=== PATIENT | male | born 1980 | race Caucasian/White ===

== ENCOUNTER → 2018-02-26 09:05 | Outpatient (CLI) | payer OTHER, SELFPAY ==
[2018-02-26 10:16] LABS: Basophils % 0.3 % (0.1-2.0); Eosinophils # 0.5 K/mm3 (0.0-0.4); Eosinophils % 4.5 % (0.1-12.0); Hematocrit 47.3 % (42.0-52.0); Hemoglobin 15.8 g/dL (14.1-18.0); Lymphocytes # 2.3 K/mm3 (0.7-4.5); Lymphocytes % 19.7 K/mm3 (10-50); Mean Corpuscular HGB Conc 33.3 g/dL (31.8-35.4); Mean Corpuscular Hemoglobin 30.4 pg (27.0-31.2); Mean Corpuscular Volume 91.4 fl (80-94); Mean Platelet Volume 7.4 fl (7.4-10.4); Monocytes # 0.6 K/mm3 (0.1-1.0); Neutrophils # 8.2 K/mm3 (1.8-7.8); Neutrophils % 70.6 % (37.0-80.0); Platelet Count 236 K/mm3 (142-424); Red Blood Count 5.18 M/mm3 (4.60-6.20); Red Cell Distribution Width 12.8 % (11.5-17.5); White Blood Count 11.7 K/mm3 (4.8-10.8)
== END ==
PROVIDERS: PCP Emergency Medicine; Visit Provider Emergency Medicine
DX: K62.5 Hemorrhage of anus and rectum (principal)
CPT/HCPCS: 36415; 85025

== ENCOUNTER → 2020-04-21 07:31 | Outpatient (CLI) | payer MEDICAID, SELFPAY ==
--- NOTE | 2020-04-21 | CA_ITS ---
APPROVED REPORT Exam: Exercise Treadmill Technologist: Yana Baca, Ht: 5 ft 8 in Wt: 187 lbs BSA: 1.99 m2 HR: 65 bpm BP: 118/75 mmHg Rhythm: NSR, T WAVE ABN INFERIORLY Indications: Chest pain Medical History Medications: Vitamin D,,,,, Asprin,,,,, Allergies: PCN Cardiac Risk Factors: FHX of CAD Stress Test Details Test: Fred HR Resting HR: 80 bpm Max Heart Rate (APMHR): 180 bpm Max HR Achieved: 166 bpm Target HR (85% APMHR): 153 bpm % of APMHR: 92 Recovery HR: 102 bpm BP Resting BP: 127.0/80.0 mmHg Max BP: 172.0/70.0 mmHg Recovery BP: 138.0/64.0 mmHg ECG Resting ECG: NSR,T WAVE ABN INFERIORLY Clinical Exercise duration: 09:17 min Highest Stage Achieved: Exercise capacity: 10.1 METs Stress ECG Conclusion EXERCISED 9:00 ON FRED PROTOCOL WITH MAX HEART RATE 158 BPM WHICH IS 88% OF PM FOR AGE. MAX BP 172/70. METS = 10.1. TEST STOPPED DUE TO SOA AND DIZZINESS. PATIENT HAD CHEST TIGHTNESS AND DYSPNEA. FREQUENT PVC'S AND V. COUPLETS WITH ONE V. TRIPLET IN STAGE III. MILD EXAGGERATION OF BASELINE T WAVE ABNS INFERIORLY. OTHERWISE NORMAL ST RESPONSE TO EXERCISE. FREQUENT V. ECTOPY IN FINAL STAGE OF EXERCISE. OTHERWISE NORMAL GXT. STRESS ECHO IMAGES REPORTED SEPARATELY Test Summary RECOVERY 05:00 0.0 0.0 86 . 111/ 61 . . REST 07:18 0.0 0.0 80 . 127/ 80 . . Stage 1 01:00 10.0 1.7 103 . . . . Stage 1 02:00 10.0 1.7 115 . . . . Stage 1 03:00 10.0 1.7 114 . 154/ 74 . . Stage 2 01:00 12.0 2.5 119 . . . . Stage 2 02:00 12.0 2.5 120 . . . . Stage 2 03:00 12.0 2.5 124 . 158/ 75 . . Stage 3 01:00 14.0 3.4 141 . . . . Stage 3 02:00 14.0 3.4 148 . . . . Stage 3 . . . . . . . Stage held Stage 3 03:00 14.0 3.4 149 . 172/ 70 . . Stage 3 . . . . . . . Stage resumed Stage 3 03:17 14.0 0.0 149 . 172/ 70 . Stop exercise at 09:17 RECOVERY 01:00 0.0 0.0 102 . . . . RECOVERY 02:00 0.0 0.0 92 . 138/ 64 . . RECOVERY 03:00 0.0 0.0 86 . 138/ 64 . . RECOVERY 04:00 0.0 0.0 93 . 122/ 63 . . RECOVERY 05:00 0.0 0.0 86 . 111/ 61 . . RECOVERY 05:32 0.0 0.0 90 . 111/ 61 . . Electronically signed by : Otf Villarreal, 04/21/2020 14:10:16
--- NOTE | 2020-04-21 07:36 | CA_ITS ---
APPROVED REPORT EXAM: Comprehensive 2D, Doppler, and color-flow Echocardiogram Manager Fraud: Maria Guadalupe Morel RVT Ht: 5 ft 8 in Wt: 187lbs BSA: 1.99 BP: 136/80 mmHg Indications: SOA,ABN EKG,SMOKER,CP,HLD 2D Dimensions LVOT 2.27 cm (M/F) 1.5-2.5 M-Mode Dimensions RVDd 2.58 cm (0.9-2.6) LA Diam 2.89 cm (1.9-4.0) LVDd 4.29 cm (3.5-5.7) Ao Diam 3.19 cm (2.0-3.7) LVDs 2.31 cm (3.5-5.7) IVSd 0.50 cm (0.6-1.1) PWd 1.24 cm (0.6-1.1) EF (Teich) 77.80% FS 46.20% EDV (Teich) 82.60 mL ESV (Teich) 18.30 mL LV Diastology E Decel Time 160.00 (160-240 msec) E/A Ratio 1.0 MED E' 6.80 (< 7 cm/sec) E'/MED E' Ratio 7.87 (>14) LAT E' 7.60 (<10 cm/sec) E/LAT E' Ratio 7.04 (>14) Mitral Valve MV E Max Max. 54.00 (40-130 cm/s) MV A Velocity 55.00 (40-130 cm/s) E/A Ratio 0.98 MV Decel. Time 160.00 (160-240 ms) MV PHT 47.00 ms Pulmonary Valve PV Peak Velocity 92.00 (50-150 cm/s) Left Ventricle Left atrium is mildly enlarged, left ventricle is normal size, mild concentric left ventricular hypertrophy, visually estimated ejection fraction 55% with no regional wall motion abnormality, grade 1 diastolic dysfunction seen without tissue Doppler evidence of raise left atrial pressure. Right Ventricle Right atrium and right ventricle are mildly enlarged with normal contractility. Aortic Valve Aortic valve is minimally thickened and fibrosed, there is no aortic stenosis or aortic insufficiency. Mitral Valve Mitral valve is grossly normal, there is mild mitral regurgitation. Tricuspid Valve Tricuspid valve is grossly normal, there is mild tricuspid regurgitation, tricuspid regurgitation jet velocity is inadequate for calculation of the right ventricular systolic pressure. Pulmonic Valve Pulmonic valve is poorly visualized. Great Vessels Aortic root is normal size. Pericardium No significant pericardial effusion noted. Conclusion 1. Mild biatrial enlargement, normal left ventricular size, visually estimated ejection fraction 55% with no regional wall motion abnormality, grade 1 diastolic dysfunction seen without tissue Doppler evidence of raise left atrial pressure. 2. Mildly enlarged right ventricle with normal contractility. 3. Mild mitral and tricuspid regurgitation. 4. No significant pericardial effusion noted. Electronically signed by : Otf Villarreal, 04/21/2020 15:03:16
--- NOTE | 2020-04-21 07:36 | CA_ITS ---
APPROVED REPORT EXAM: Comprehensive 2D, Doppler, and color-flow Echocardiogram Rehabilitation Aide/Scheduler: Siena Boateng RDCS Ht: 5 ft 8 in Wt: 187lbs BSA: 1.99 BP: 105/59 mmHg Indications: SOA STRESS ECHO Conclusion 1. Patient exercised on Fred protocol and achieved 10.1 mets of workload on treadmill, patient complained of mild chest discomfort on treadmill, with no EKG changes. 2. Normal left ventricular size and function at rest, with exercise there is increase in contractility of all the segments of the myocardium with hyperdynamic left ventricular systolic response, no segmental wall motion abnormality to suggest underlying ischemic heart disease. Electronically signed by : Otf Villarreal, 04/21/2020 15:04:38
== END ==
PROVIDERS: PCP Nurse Practitioner Family; Visit Provider Nurse Practitioner Family
DX: R07.9 Chest pain, unspecified (principal); R06.00 Dyspnea, unspecified; R94.31 Abnormal electrocardiogram [ECG] [EKG]; F17.200 Nicotine dependence, unspecified, uncomplicated
CPT/HCPCS: 93017; 93306; 93350

== ENCOUNTER → 2020-05-09 06:36 | Outpatient (CLI) | payer MEDICAID, SELFPAY ==
--- NOTE | 2020-05-09 06:37 | CA_ITS ---
APPROVED REPORT Exam: Exercise Treadmill Technologist: Misa Sauer Ht: 5 ft 8 in Wt: 184 lbs BSA: 1.97 m2 HR: 57 bpm BP: 116/73 mmHg Indications: Chest pain Medical History Medications: Aspirin,,,,, Stress Test Details Test: Fred HR Resting HR: 66 bpm Max Heart Rate (APMHR): 180 bpm Max HR Achieved: 169 bpm Target HR (85% APMHR): 153 bpm % of APMHR: 93 Recovery HR: 94 bpm BP Resting BP: 116/73 mmHg Max BP: 186/80 mmHg Recovery BP: 137.0/73.0 mmHg ECG Clinical Exercise duration: 10:01 min Highest Stage Achieved: Exercise capacity: 12.8 METs Stress ECG Conclusion Resting ECG: Sinus Bradycardia Fred Protocol completed. Exercised 10:01. METS 12.8 Maximum Blood Pressure: 186/80. Maximum Heart Rate 169 BPM. Patient stopped due to shortness of breath. Symptoms: Shortness of Breath during peak exercise, resolved in recovery. No chest pain. Arrhythmias/Ectopy: No ectopy noted. ST-T Changes: Less than 1.[address] depression Conclusion: Images to follow. Test Summary REST . . . . . . . Sitting REST 01:35 0.0 0.0 66 . 116/ 73 . . Stage 1 01:00 10.0 1.7 103 . . . . Stage 1 02:00 10.0 1.7 96 . . . . Stage 1 03:00 10.0 1.7 98 . 130/ 78 . . Stage 2 01:00 12.0 2.5 117 . . . . Stage 2 02:00 12.0 2.5 126 . . . . Stage 2 03:00 12.0 2.5 129 . 145/ 82 . . Stage 3 01:00 14.0 3.4 139 . . . . Stage 3 02:00 14.0 3.4 142 . . . . Stage 3 . . . . . . . Cardiolite injected Stage 3 03:00 14.0 3.4 144 . 154/ 88 . . Stage 4 01:00 16.0 4.2 164 . . . . Stage 4 01:01 16.0 4.2 164 . . . Stop exercise at 10:01 RECOVERY 01:00 0.0 0.0 140 . 186/ 80 . . RECOVERY 02:00 0.0 0.0 110 . 186/ 80 . . RECOVERY 03:00 0.0 0.0 102 . 150/ 80 . . RECOVERY 04:00 0.0 0.0 94 . 137/ 73 . . RECOVERY 04:12 0.0 0.0 95 . 137/ 73 . . Electronically signed by : Otf Villarreal, 05/10/2020 06:43:13
--- NOTE | 2020-05-09 06:37 | NM_ITS ---
APPROVED REPORT Exam: Nuclear Stress Test Indication: Chest pain, SOB, High cholesterol, Tobacco use Patient Location: Outpatient Stress Tech: Misa Sauer [place] Tech:Violetta Jon, ARRT, RT (R)(N) Ht: 5 ft 8 in Wt: 184 lbs HR: 57 bpm BP: 116/73 mmHg BSA: 1.97 m2 BMI: 27.9 History: Chest pain, SOB, High cholesterol, Tobacco use Procedure: Patient exercised on Fred protocol 10:01 minutes and sec, resting heart rate 57 bpm, resting blood pressure 116/73 mmHg, with exercise maximum heart rate achived was 169 bpm which is 94 % of the maximum predicted heart rate and blood pressure was 186/80 mmHg. Test was stopped due to SOB. Patient denied any complaint of chest pain. Patient has Good exercise capacity, achieved 12.8 METs of workload on treadmill, the blood pressure response to exercise was Adequate. Electrocardiogram Resting electrocardiogram showed sinus rhythm, with exercise there is less than 1.[address] segment depression noted from the baseline EKG. The EKG portion of the exercise Myoview is negative for ischemia. Cardiac Stress and Resting SPECT Images: Cardiac Stress and Resting SPECT images were obtained using technetium 99m Myoview 31.9 mCi stress and 10.31 mCi at rest. Gated SPECT with analysis of segmental wall motion and calculation of the ejection fraction also done. Cardiac stress and resting SPECT images show uniform myocardial activity without segmental perfusion abnormality, computer derived ejection fraction 54% with no regional wall motion abnormality, right ventricle is normal size and contractility. Conclusion: 1. The EKG portion of the exercise Myoview is negative for ischemia, patient has good exercise capacity achieved 12.8 mets of workload on treadmill, the blood pressure response to exercise was adequate, there was no exercise-induced chest discomfort. 2. No scintigraphic evidence of reversible ischemia seen, computer derived ejection fraction is 54% with no regional wall motion abnormality, right ventricle is normal size and contractility. 3. Normal exercise Myoview study. Electronically signed by : Otf Villarreal, 05/10/2020 06:54:38
--- NOTE | 2020-05-09 08:48 | HMH.ITSHM ---
Current Home Medications as stated by this patient Yoel Sauer or circulation representative. []ASA
== END ==
PROVIDERS: PCP Nurse Practitioner Family; Visit Provider Urology
DX: R06.00 Dyspnea, unspecified (principal); R07.9 Chest pain, unspecified; I51.89 Other ill-defined heart diseases; F17.200 Nicotine dependence, unspecified, uncomplicated
CPT/HCPCS: 78452; 93017; A9502

== ENCOUNTER → 2020-05-23 10:28 | Outpatient (CLI) | payer MEDICAID, SELFPAY ==
--- NOTE | 2020-05-23 10:33 | XR_ITS ---
PROCEDURE: XR CHEST 2V CLINICAL HISTORY: SOA, Smoker Cough COMPARISON: CR CXR CHEST(2 VIEWS-NOT PORTABLE) from 05/27/2017 FINDINGS: The cardiomediastinal silhouette and pulmonary vascularity are within normal limits. The lungs are clear without infiltrates, suspicious nodules, or pleural effusions. No acute bony abnormalities. IMPRESSION: No acute findings. Dictated by: Kye Cortez MD 05/23/2020 12:13 Kye Cortez MD in [place] 05/23/2020 12:13
== END ==
PROVIDERS: PCP Nurse Practitioner Family; Visit Provider Internal Medicine
DX: R06.00 Dyspnea, unspecified (principal); R07.9 Chest pain, unspecified; F17.200 Nicotine dependence, unspecified, uncomplicated
CPT/HCPCS: 71046

== ENCOUNTER → 2020-05-31 13:36 | Outpatient (CLI) | payer MEDICAID, SELFPAY ==
--- NOTE | 2020-05-31 13:40 | CT_ITS ---
PROCEDURE: CT CHEST WO CON CLINICAL INDICATION: CP, DODGE, smoker COMPARISON: CT ABDPELW CT abdomen pelvis w con from 02/25/2018 DX XR CHEST 2V from 05/23/2020 TECHNIQUE: Axial images obtained with sagittal and coronal reformats. All CT scans at the facility use one or more dose reduction, viz: automated exposure control, ma/kV adjustment per patient size (including targeted exams where dose is matched to indication, i.e. head), or iterative reconstruction technique. FINDINGS: HEART AND MEDIASTINAL STRUCTURES: Unremarkable. LUNGS AND PLEURAL SPACES: Minimal atelectatic or fibrotic changes are present within the lingula. There is calcified granuloma in the left upper lobe.. Minimal atelectatic or fibrotic changes are present in the right lower lobe. There is some mild bronchial thickening in the lower lobes. There is a 6 mm nodular opacity within the medial aspect of the lingula which may be due to some mild fibrotic change. Follow-up may confirm stability BONY STRUCTURES: Minimal degenerative changes within the thoracic spine UPPER ABDOMEN: Unremarkable. ADDITIONAL FINDINGS: No other significant abnormalities. IMPRESSION: No acute finding. There is some minimal bronchial thickening and mild scattered atelectatic or fibrotic changes. Minimal nodularity in the lingula which could be due to some mild fibrotic change. Consider six-month follow-up to confirm short term stability. Dictated by: Kye Cortez MD 06/01/2020 06:25 Kye Cortez MD in [place] 06/01/2020 06:25
[2020-05-31 14:30] VITALS: PULSE 74; PULSE 78
== END ==
PROVIDERS: PCP Nurse Practitioner Family; Visit Provider Physician Assistant
DX: R07.9 Chest pain, unspecified (principal); R06.00 Dyspnea, unspecified; F17.200 Nicotine dependence, unspecified, uncomplicated
CPT/HCPCS: 71250; 94060; 94640

== ENCOUNTER 2020-10-10 10:50 | Emergency (ER) | payer OTHER, SELFPAY ==
[2020-10-10 11:13] VITALS: RESP 16; TEMP 37.2; O2SAT 98; BMI 28.8
--- NOTE | 2020-10-10 11:17 | HMH.EDUTC ---
[facility] [place] Disposition Clinical Impression: At increased risk of exposure to COVID-19 virus Disposition: Home, Self-Care Condition on Discharge: Good Instructions: DI for Allergic Rhinitis, Cetirizine, Preventing the Spread of Coronavirus Discharge Instructions Additional Instructions: Drink plenty of fluids. Take tylenol for pain or fever. Return if you begin to have difficulty breathing. Follow up with your regular doctor. GO TO THE ER FOR ANY WORSENING SYMPTOMS Prescriptions: Cetirizine HCl [Zyrtec] 10 mg PO DAILY 30 Days #30 cap Transmission Status: Received by [facility] Referrals: PCP,No [Primary Care Provider] - Time of Disposition: 11:22 Medical Decision Making - Medical Records Medical records reviewed: No: I reviewed the patient's medical records. - Cristi Inquiry Pt receiving controlled substance: No Vital Signs: 10/10/20 11:13 10/10/20 11:42 Temperature 98.9 F 98.0 F Temperature Source Oral Oral Pulse Rate 78 Respiratory Rate 16 16 Blood Pressure 125/88 02 Sat by Pulse Oximetry 98 Oxygen Delivery Method Room Air Room Air Orders (Tests/Meds): ORDERS Category Date Time Status Covid-19 Nasal PCR ([facility]) Routine Lab 10/10/20 11:00 Received [facility] [place] HPI - General Stated complaint: wants covid test Time Seen by Provider: 10/10/20 11:15 - History of Present Illness Provider Complaint: He has recently traveled out of [place]. He needs a negative covid-19 test to be allowed to return to work. - Related Data Previous Rx's Medication Instructions Recorded omeprazole 40 mg capsule,delayed 40 mg PO DAILY #30 cap 05/23/20 release Cetirizine HCl [Zyrtec] 10 mg PO DAILY 30 Days #30 cap 10/10/20 Allergies Allergy/AdvReac Type Severity Reaction Status Date / Time Penicillins [PENICILLINS] Allergy Mild Verified 06/20/20 10:00 [facility] History - Hepatitis A Screen Attestation statement:: This patient has been screened for Hepatitis A risk factors. I have reviewed the patient's past medical history: Yes Medical History: Reports:: Cancer, Hyperlipidemia Denies:: Diabetes Mellitus Type 1, Diabetes Mellitus Type 2, Hypertension, Lung Disease, Seizures Other Surgeries: Yes: Colonoscopy, Other Amputation: (LLE) Fractures: No - Social History Smoking Status: Current every day smoker Tobacco Type: cigarettes # Packs/Day (cigarettes): 1 Alcohol Intake: never Alcohol Intake Frequency:: holidays/special occasions only Substance Use Type: denies use, marijuana Occupational Status: employed Family Hx:: Coronary Artery Disease ROS Obtained: Yes All systems reviewed & no additional complaints - Constitutional Constitutional: Reports system reviewed and no additional complaints, except as docu - Eyes Eyes: Reports system reviewed and no additional complaints, except as docu - ENT Ears, Nose, Mouth, and Throat: Reports system reviewed and no additional complaints, except as docu - Cardiovascular Cardiovascular: Reports system reviewed and no additional complaints, except as docu - Respiratory Respiratory: Reports system reviewed and no additional complaints, except as docu - Gastrointestinal Gastrointestingal: Reports: system reviewed and no additional complaints, except as docu Physical Exam - General General appearance: alert, in no apparent distress - Head Head exam: atraumatic, normocephalic, normal inspection - Eye Eye exam: Present: normal appearance, PERRL, EOMI - ENT ENT exam: Present: normal exam, normal oropharynx, mucous membranes moist, TM's normal bilaterally, normal external ear exam - Neck Neck exam: Present: normal inspection, full ROM, trachea midline. Absent: meningismus, lymphadenopathy - Chest Chest inspection: Present: normal inspection, symmetric chest wall rise. Absent: tenderness - Respiratory Respiratory exam: Present: normal lung sounds bilaterally. Absent: respiratory distress - Cardiovascular Cardiovas
[2020-10-10 11:42] VITALS: BP 125/88; PULSE 78; RESP 16; TEMP 36.7; O2SAT 98
== END 2020-10-10 11:43 | disposition home or self-care (01) ==
PROVIDERS: Emergency Provider Nurse Practitioner Family
DX: Z20.822 Contact with and (suspected) exposure to COVID-19 (principal)
CPT/HCPCS: 99202; G0463; U0003

== ENCOUNTER 2021-02-06 09:41 | Emergency (ER) | payer OTHER, SELFPAY ==
[2021-02-06 10:00] VITALS: BP 130/86; PULSE 78; RESP 21; TEMP 36.9; O2SAT 98; BMI 27.1
--- NOTE | 2021-02-06 10:20 | HMH.EDUTC ---
[facility] [place] Disposition Clinical Impression: Viral syndrome Disposition: Home, Self-Care Condition on Discharge: Good Instructions: DI for COVID-19 (Suspected or Confirmed ), Coronavirus Disease 2019, Preventing the Spread of Coronavirus Discharge Instructions Additional Instructions: *Monitor Temp, Over the counter Motrin or Tylenol as directed/as needed Tylenol every 4 hours and Motrin every 6 hours (as long as your family doctor has told you that you can take it) for fever or pain. and straight to ER if unable to lower temp less than 101.0 after medication given *Warm salt water gargles may help to soothe the throat *Throat Lozenges *Warm fluids like tea with honey may help to soothe the throat *Sleep elevated *Humidifier/Vaporizer Follow up IMMEDIATELY for new or worsening symptoms or no Noticeable improvement over the next 48-72 hours. 911 for difficulty breathing or swallowing You were tested for today for COVID19 your test result should be back in the next 24-48 hours, you may call to the [facility] to see if your test results are back in the next 48 hours [phone] [facility] hours are 9am-9pm You was given a handout with instructions for Self Quarantine and Self isolation for while you wait on test results and what to do if they are positive If you are positive the Health Dept will be contacting you also Make sure to take your Vitamins Vit. C Vit D and Zinc if you can take them Referrals: Provider,Referral, [Primary Care Provider] - As needed Forms: Work/School Release Time of Disposition: 10:30 Medical Decision Making - Cristi Inquiry Pt receiving controlled substance: No Cristi was queried for this patient: No Vital Signs: 02/06/21 10:00 Temperature 98.5 F Temperature Source Oral Pulse Rate [Right Brachial] 78 Respiratory Rate 21 Blood Pressure [Right Arm] 130/86 Blood Pressure Mean [Right Arm] 100 Blood Pressure Source [Right Arm] Automatic Cuff Blood Pressure Position [Right Arm] Sitting 02 Sat by Pulse Oximetry 98 Oxygen Delivery Method Room Air Orders (Tests/Meds): ORDERS Category Date Time Status Covid-19 Nasal PCR ([facility]) Routine Lab 02/06/21 10:04 Ordered [facility] [place] HPI - General Stated complaint: covid test Time Seen by Provider: 02/06/21 10:20 Mode of Arrival: Ambulatory Source of Information: Patient Limitations: No Limitations Description of Symptoms (Recalled from Triage Doc. by RN): PATIENT C/O FEVER, RUNNY NOSE, AND WEAKNESS SINCE LAST NIGHT. REQUESTING COVID TEST HEENT Symptoms (Recalled from RN notes): Yes Resp Symptoms (Recalled from RN notes): No Skin Symptoms (Recalled from RN notes): No MS Symptoms (Recalled from RN notes): No Functional Status (Recalled from RN notes): WNL - History of Present Illness Provider Complaint: Patient states that he felt feverish last night and having body aches runny nose chills and feeling fatigued States that due to his symptoms he had to get tested for COVID before he could return to work - Related Data Previous Rx's Medication Instructions Recorded omeprazole 40 mg capsule,delayed 40 mg PO DAILY #30 cap 05/23/20 release Cetirizine HCl [Zyrtec] 10 mg PO DAILY 30 Days #30 cap 10/10/20 Allergies Allergy/AdvReac Type Severity Reaction Status Date / Time Penicillins [PENICILLINS] Allergy Mild Verified 06/20/20 10:00 fluoxetine [From Prozac] Allergy Verified 02/06/21 10:18 - Worker's Comp Is this a Worker's Comp case?: No [facility] History - Hepatitis A Screen Drug use history?: No High risk sexual behaviors?: No History of sexually transmitted infection?: No Currently employed?: No Childcare worker?: No Do you have indoor plumbing?: Yes Do you have electricity?: Yes Attestation statement:: This patient has been screened for Hepatitis A risk factors. I have reviewed the patient's past medical history: Yes Medical History: Reports:: Cancer, Hyperlipidemia Denies:: Diabetes Mellitus Type 1, Diabetes Mellitus Type 2, Hyperten
[2021-02-06 10:36] VITALS: BP 130/86; PULSE 78; RESP 21; TEMP 37.1; O2SAT 98
== END 2021-02-06 10:38 | disposition home or self-care (01) ==
PROVIDERS: Emergency Provider Nurse Practitioner
DX: B34.9 Viral infection, unspecified (principal)
CPT/HCPCS: 99202; G0463; U0003

== ENCOUNTER 2021-09-19 09:07 | Emergency (ER) | payer SELFPAY ==
[2021-09-19 10:11] VITALS: BP 111/87; PULSE 82; RESP 16; TEMP 37.4; O2SAT 98; BMI 27.3
[2021-09-19 10:15] LABS: UTC Influenza A Antigen Negative (Negative); UTC Influenza B Antigen Negative (Negative)
--- NOTE | 2021-09-19 10:20 | HMH.EDUTC ---
[facility] [place] Disposition Clinical Impression: Nausea vomiting and diarrhea Disposition: Home, Self-Care Condition on Discharge: Good Instructions: Nausea and Vomiting-Adult, Diarrhea, Ondansetron Additional Instructions: Drink extra fluids with and between meals. If you have difficulty drinking, try very small amounts of water or suck on ice chips. ? Avoid fruit juices, as these do not replace minerals and can actually increase diarrhea. ? Children and adults can use sports drinks to replenish electrolytes. Younger children and infants should use products formulated for children, like oral rehydration solutions. ? Eat food in small amounts and let your stomach recover. ? Get lots of rest. You may feel tired or weak. ? No greasy or fried foods for the next 24-48 hours BRAT diet Bananas Rice Apples and [place] ? Make sure to drink plenty of liquids ? Return if needed ? Straight to ER if any life threatening symptoms ? Zofran as prescribed ? Follow up with family doctor in the next 48-72 hours if no improvement or any worsening of symptoms Prescriptions: Ondansetron [Zofran 4mg ODT] 4 mg PO TIDP PRN #9 tab PRN Reason: Nausea Transmission Status: Pending to [id number] Referrals: Provider,Referral, MD [Primary Care Provider] - As needed Forms: Work/School Release Medical Decision Making - Cristi Inquiry Pt receiving controlled substance: No Cristi was queried for this patient: No Vital Signs: 09/19/21 10:11 Temperature 99.3 F Temperature Source Oral Pulse Rate [Left] 82 Respiratory Rate 16 Blood Pressure [Right Arm] 111/87 Blood Pressure Mean [Right Arm] 95 02 Sat by Pulse Oximetry 98 - Lab Data Lab results reviewed: Yes: I reviewed the patient's lab results. Lab Results 09/19/21 09:59: Influenza Type A Ag Negative, Influenza Type B Ag Negative [facility] [place] HPI - General Stated complaint: vomiting, fatigue, chills, diarrhea, stomach cramp Time Seen by Provider: 09/19/21 10:20 Mode of Arrival: Ambulatory Source of Information: Patient Limitations: No Limitations Description of Symptoms (Recalled from Triage Doc. by RN): pt c/o n/v/d and chills since yesterday. HEENT Symptoms (Recalled from RN notes): No Resp Symptoms (Recalled from RN notes): No Skin Symptoms (Recalled from RN notes): No MS Symptoms (Recalled from RN notes): No Functional Status (Recalled from RN notes): wnl - History of Present Illness Provider Complaint: Patient states that he thinks he may have a stomach bug States that he has been having N/V/D since yesterday States that this morning he was still having N/V and was unable to go to work so he came in to get checked - Related Data Previous Rx's Medication Instructions Recorded omeprazole 40 mg capsule,delayed 40 mg PO DAILY #30 cap 05/23/20 release Cetirizine HCl [Zyrtec] 10 mg PO DAILY 30 Days #30 cap 10/10/20 Ondansetron [Zofran 4mg ODT] 4 mg PO TIDP PRN #9 tab 09/19/21 Allergies Allergy/AdvReac Type Severity Reaction Status Date / Time Penicillins [PENICILLINS] Allergy Mild Verified 06/20/20 10:00 fluoxetine [From Prozac] Allergy Verified 02/06/21 10:18 - Worker's Comp Is this a Worker's Comp case?: No [facility] History - Hepatitis A Screen Drug use history?: No High risk sexual behaviors?: No History of sexually transmitted infection?: No Currently employed?: No Childcare worker?: No Do you have indoor plumbing?: Yes Do you have electricity?: Yes Attestation statement:: This patient has been screened for Hepatitis A risk factors. I have reviewed the patient's past medical history: Yes Medical History: Reports:: Cancer, Hyperlipidemia Denies:: Diabetes Mellitus Type 1, Diabetes Mellitus Type 2, Hypertension, Lung Disease, Seizures Other Surgeries: Yes: Colonoscopy, Other Amputation: (LLE) Fractures: No - Social History Smoking Status: Current every day smoker Tobacco Type: cigarettes # Packs/Day (cigarettes): 1 Alcohol Intake: never
[2021-09-19 10:35] VITALS: BP 111/87; PULSE 82; RESP 16; TEMP 37.4
== END 2021-09-19 10:38 | disposition home or self-care (01) ==
PROVIDERS: Emergency Provider Nurse Practitioner
DX: B34.9 Viral infection, unspecified (principal); R11.2 Nausea with vomiting, unspecified; E78.5 Hyperlipidemia, unspecified; Z88.0 Allergy status to penicillin
CPT/HCPCS: 87804; 99212; G0463

== ENCOUNTER 2021-10-11 15:47 | Emergency (ER) | payer SELFPAY ==
[2021-10-11 16:31] VITALS: BP 128/83; PULSE 77; RESP 19; TEMP 36.8; O2SAT 100; BMI 24.7
--- NOTE | 2021-10-11 17:11 | HMH.EDUTC ---
[facility] [place] Disposition Clinical Impression: Encounter to establish care Disposition: Home, Self-Care Condition on Discharge: Good Additional Instructions: You was given list of accepting physicians you may call to see if they are taking new patients and make an appointment Return if needed Straight to ER if any life threatening symptoms Referrals: Provider,Referral, MD [Primary Care Provider] - As needed Time of Disposition: 17:15 Medical Decision Making - Cristi Inquiry Pt receiving controlled substance: No Cristi was queried for this patient: No Vital Signs: 10/11/21 16:31 Temperature 98.3 F Temperature Source Oral Pulse Rate [Left Brachial] 77 Respiratory Rate 19 Blood Pressure [Left Arm] 128/83 Blood Pressure Mean [Left Arm] 98 Blood Pressure Source [Left Arm] Automatic Cuff Blood Pressure Position [Left Arm] Sitting 02 Sat by Pulse Oximetry 100 Oxygen Delivery Method Room Air Medical Decision Narrative: Explained to patient that he was at the Urgent treatment center and he could not establish care here however if he had something urgent going on we could see him for that and he declined States that he didnt and just wanted to establish care somewhere Patient given list of accepting physicians and recommended that he call them for appointment [facility] [place] HPI - General Stated complaint: weakness,stomach issues Time Seen by Provider: 10/11/21 17:11 Mode of Arrival: Ambulatory Source of Information: Patient Limitations: No Limitations Description of Symptoms (Recalled from Triage Doc. 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 States that he has episodes of fatigue on and off States that he feels fine right now but wanted to come in and see if he could establish care and get his hormones checked because he has ED - Related Data Previous Rx's Medication Instructions Recorded omeprazole 40 mg capsule,delayed 40 mg PO DAILY #30 cap 05/23/20 release Cetirizine HCl [Zyrtec] 10 mg PO DAILY 30 Days #30 cap 10/10/20 Ondansetron [Zofran 4mg ODT] 4 mg PO TIDP PRN #9 tab 09/19/21 Allergies Allergy/AdvReac Type Severity Reaction Status Date / Time Penicillins [PENICILLINS] Allergy Mild Verified 06/20/20 10:00 fluoxetine [From Prozac] Allergy Verified 02/06/21 10:18 - Worker's Comp Is this a Worker's Comp case?: No [facility] History - Hepatitis A Screen Drug use history?: No High risk sexual behaviors?: No History of sexually transmitted infection?: No Currently employed?: No Childcare worker?: No Do you have indoor plumbing?: Yes Do you have electricity?: Yes Attestation statement:: This patient has been screened for Hepatitis A risk factors. I have reviewed the patient's past medical history: Yes Medical History: Reports:: Cancer, Hyperlipidemia Denies:: Diabetes Mellitus Type 1, Diabetes Mellitus Type 2, Hypertension, Lung Disease, Seizures Other Surgeries: Yes: Colonoscopy, Other Amputation: (LLE) Fractures: No - Social History Smoking Status: Current every day smoker Tobacco Type: cigarettes # Packs/Day (cigarettes): 1 Alcohol Intake: never Alcohol Intake Frequency:: holidays/special occasions only Substance Use Type: denies use, marijuana Occupational Status: other Family Hx:: Coronary Artery Disease ROS Obtained: Yes All systems reviewed & no additional complaints, Yes Systems reviewed as appropriate & no additional complaints - Eyes Eyes: Reports system reviewed and no additional complaints, except as docu - ENT Ears, Nose, Mouth, and Throat: Reports system reviewed and no additional complaints, except as
[2021-10-11 17:22] VITALS: BP 128/83; PULSE 77; RESP 19; TEMP 36.8; O2SAT 100
== END 2021-10-11 17:25 | disposition home or self-care (01) ==
PROVIDERS: Emergency Provider Nurse Practitioner
DX: Z76.89 Persons encountering health services in other specified circumstances (principal); E78.5 Hyperlipidemia, unspecified; F17.210 Nicotine dependence, cigarettes, uncomplicated; Z88.0 Allergy status to penicillin
CPT/HCPCS: 99211; G0463

== ENCOUNTER 2022-03-01 09:28 | Emergency (ER) | payer SELFPAY ==
[2022-03-01 10:15] VITALS: BP 141/96; PULSE 86; RESP 19; TEMP 37.5; O2SAT 100; BMI 27.3
[2022-03-01 10:35] LABS: UTC Influenza A Antigen Negative (Negative); UTC Influenza B Antigen Negative (Negative)
--- NOTE | 2022-03-01 10:45 | EXP.UTC ---
Discharge Plan Disposition Patient Disposition: Home, Self-Care Condition: Good Prescriptions Prescriptions: No Action omeprazole 40 mg capsule,delayed release(DR/EC) 40 mg PO DAILY Qty: 30 2RF cetirizine 10 MG capsule 10 mg PO DAILY 30 Days Qty: 30 5RF ondansetron 4 MG tablet,disintegrating 4 mg PO TIDP PRN (Reason: Nausea) Qty: 9 0RF Referrals Follow up/Referrals: Provider,Referral, MD [Primary Care Provider] - See instructions Activity Restrictions/Add. Instructions Additional Instructions/Restrictions: *Monitor Temp, Over the counter Motrin or Tylenol as directed/as needed Tylenol every 4 hours and Motrin every 6 hours (as long as your family doctor has told you that you can take it) for fever or pain. and straight to ER if unable to lower temp less than 101.0 after medication given *Warm salt water gargles may help to soothe the throat *Throat Lozenges? *Warm fluids like tea with honey may help to soothe the throat? *Sleep elevated *Humidifier/Vaporizer Follow up IMMEDIATELY for new or worsening symptoms or no Noticeable improvement over the next 48-72 hours. 911 for difficulty breathing or swallowing You were tested for today for COVID19 your test result should be back in the next 24-48 hours, you may check your results on the [facility] my Health Portal Make sure to take your Vitamins Vit. C Vit D and Zinc if you can take them Clinical Impressions Clinical Impression: Viral syndrome Stand Alone Forms Stand Alone Forms: Work/School Release Instructions Patient Instructions: DI for Viral Syndrome, Coronavirus Disease 2019 Discharge ED Provider: Lori Patel [facility] [place] General Stated complaint: cough Mode of Arrival: Ambulatory Source of Information: Patient Limitations: No Limitations Time Seen by Provider: 03/01/22 10:30 Description of Symptoms (Recalled from Triage Doc. by RN): PATIENT C/O COUGH IN THE MORNINGS, HEADACHE, FEVER, AND DECREASED APPETITE X 2 DAYS HEENT Symptoms (Recalled from RN notes): No Resp Symptoms (Recalled from RN notes): Yes Skin Symptoms (Recalled from RN notes): No MS Symptoms (Recalled from RN notes): No Functional Status (Recalled from RN notes): WNL History of Present Illness Provider Complaint: Patient states that for the last couple of days he has been having headache, body aches, chills and cough in the morning States that today he was still feeling like he may have the flu or something so he came in to get tested Related Data Previous Rx's Medication Instructions Recorded omeprazole 40 mg capsule,delayed 40 mg PO DAILY #30 caps 05/23/20 release cetirizine 10 mg capsule 10 mg PO DAILY 30 days #30 caps 10/10/20 ondansetron 4 mg disintegrating 4 mg PO TIDP PRN Nausea #9 tabs 09/19/21 tablet Allergies Allergy/AdvReac Type Severity Reaction Status Date / Time Penicillins [PENICILLINS] Allergy Mild Verified 06/20/20 10:00 fluoxetine [From Prozac] Allergy Verified 02/06/21 10:18 Worker's Comp Is this a Worker's Comp case?: No PFSH PFSH Medical History (Updated 03/01/22 @ 10:49 by Lori Patel APRN) Abnormal EKG Anxiety Cancer Chest pain Depression Dyspnea Tobacco dependence syndrome Social History (Updated 03/01/22 @ 10:37 by Rita Matthews RN) Smoking Status: Current every day smoker tobacco type: cigarettes packs per day: 1 second hand exposure: No alcohol intake: never substance use type: denies use and marijuana current occupational status: other Travel in the last 8 weeks: None number of children: 0 ROS Obtained: Yes All systems reviewed & no additional complaints except as documented and Yes Systems reviewed as appropriate & no additional complaints except as documented Constitutional Constitutional: Reports system reviewed and no additional complaints, except as documented, Reports as per HPI, Reports body ache, Reports chills, Reports fever(s), Reports headache(s) and Reports po
[2022-03-01 10:50] VITALS: BP 141/96; PULSE 86; RESP 19; TEMP 37.5; O2SAT 100
== END 2022-03-01 10:54 | disposition home or self-care (01) ==
PROVIDERS: Emergency Provider Nurse Practitioner
DX: U07.1 COVID-19 (principal)
CPT/HCPCS: 87804; 99212; C9803; G0463; U0003; U0005

== ENCOUNTER 2023-09-01 12:19 | Emergency (ER) | payer SELFPAY ==
[2023-09-01 12:30] VITALS: BP 145/83; PULSE 72; RESP 18; TEMP 36.7; O2SAT 98; BMI 27.3
--- NOTE | 2023-09-01 12:42 | ED_ITS ---
Discharge Plan Disposition Patient Disposition: Home, Self-Care Condition: Good Prescriptions Prescriptions: No Action cetirizine 10 MG capsule 10 mg PO DAILY 30 Days Qty: 30 5RF Referrals Follow up/Referrals: Natasha Polo APRN [Primary Care Provider] - See instructions Activity Restrictions/Add. Instructions Additional Instructions/Restrictions: Keep the wound clean and dry. Watch the wound for signs of infection, such as redness, swelling, drainage, fever. etc. Take tylenol or ibuprofen for pain. Follow up with your regular doctor. Return in 7 days to have the sutures removed. GO TO THE ER FOR ANY WORSENING SYMPTOMS OR CONCERNS. 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 He denies any change in his vision or involvement of his eye in the injury. Related Data Previous Rx's Medication Instructions Recorded cetirizine 10 mg capsule 10 mg PO DAILY 30 days #30 caps 10/10/20 Allergies Allergy/AdvReac Type Severity Reaction Status Date / Time Penicillins [PENICILLINS] Allergy Mild Verified 09/01/23 13:12 fluoxetine [From Prozac] Allergy Verified 09/01/23 13:12 [facility] Disclaimer: The information contained in this section may have been updated after the patient was seen, as this information can be updated by other users. Medical History (Updated 09/01/23 @ 13:49 by Young Bojorquez APRN) Cancer Depression Anxiety Tobacco dependence syndrome Abnormal EKG Chest pain Dyspnea Social History Smoking Status: Current every day smoker tobacco type: cigarettes packs per day: 1 second hand exposure: No alcohol intake: never substance use type: denies use and marijuana current occupational status: other Travel in the last 8 weeks: None number of children: 0 ROS Obtained: Yes All systems reviewed & no additional complaints except as documented Constitutional Constitutional: Denies chills and Denies fever(s) Eyes Eyes: Denies eye discharge ENT Ears, Nose, Mouth, and Throat: Denies dizziness, Denies otalgia and Denies sore throat Cardiovascular Cardiovascular: Denies chest pain Respiratory Respiratory: Denies shortness of breath, Denies chest congestion, Denies cough, Denies stridor and Denies wheezing Gastrointestinal Gastrointestingal: Denies nausea or vomiting Musculoskeletal Musculoskeletal: Reports system reviewed and no additional complaints, except as documented and Denies arthralgias Integumentary/Breasts Skin/Breast: Reports as per HPI and Reports wounds Neurologic Neurologic: Denies dizziness and Denies paresthesias Allergic/Immunologic Allergic/Immunologic: Denies wheezing Physical Exam General General appearance: alert and in no apparent distress Head Head exam: atraumatic, normocephalic and normal inspection Eye Eye exam: Present normal appearance, PERRL and EOMI ENT ENT exam: Present normal exam, normal oropharynx, mucous membranes moist, TM's normal bilaterally and normal external ear exam Neck Neck exam: Present normal inspection, full ROM and trachea midline; Absent meningismus or lymphadenopathy Chest Chest inspection: Present normal inspection and symmetric chest wall rise; Absent tenderness Respiratory Respiratory exam: Present normal lung sounds bilaterally; Absent respiratory distress Cardiovascular Cardiovascular exam: Present regular rate and normal rhythm; Absent JVD Abdominal Exam Abdominal exam: Present soft and normal bowel sounds; Absent distention, tenderness or guarding Extremities Exam Extremities exam: Present normal inspection, full ROM and normal capillary refill; Absent calf tenderness Back Exam Back exam: Present normal inspection; Absent tenderness Neurological Exam Neurological exam: Present alert and oriented X3 Psychiatric Psychiatric exam: Present normal affect and normal mood Skin Skin exam: Present other (there is a 3 cm linear laceration that runs horizontal just below his left eye brow and just above his left eye lid. no deep tissue damage, no foreign body. ) Lymphatic Lymphatic Findings: no adenopathy Medical Decision Making Cristi Inquiry Pt receiving controlled substance: No Procedures Risk/Benefits of Procedure(s) Were Explained: Yes Laceration Laceration 1: Site: face Side (If applicable): left Size (cm): 3 Description: linear Depth: simple, single layer Local Anesthetic: lidocaine 1% Amount of anesthesia used (mL): 1 Pre-repair: wound explored, irrigated extensively and deep structures intact Skin layer closed with: nylon Size (cm): 6-0 Number of sutures: 12 Technique: simple, interrupted (He tolerated this well, good closure was obtained. the edges were approximated well. )
[2023-09-01] MEDS: LIDOCAINE 1% PF 2ML AMPULE 2 ML IM (13:15)
[2023-09-01] MEDS: TET/DIPHTH/PERT-ADULT 0.5ML SYRINGE 0.5 ML IM (13:56)
--- NOTE | 2023-09-01 14:04 | PC.NURSE ---
Pt received 12 stitches above left eye.
[2023-09-01 14:05] VITALS: BP 145/83; PULSE 72; RESP 18; TEMP 36.7; O2SAT 98
== END 2023-09-01 14:04 | disposition home or self-care (01) ==
PROVIDERS: Emergency Provider Nurse Practitioner Family; PCP Nurse Practitioner Family
DX: S01.112A Laceration without foreign body of left eyelid and periocular area, initial encounter (principal); F32.A Depression, unspecified; F41.9 Anxiety disorder, unspecified; F17.210 Nicotine dependence, cigarettes, uncomplicated; W21.03XA Struck by baseball, initial encounter; S09.93XA Unspecified injury of face, initial encounter
CPT/HCPCS: 90471; 90715; 99212; 99214; G0463

== ENCOUNTER 2023-11-27 22:22 | Emergency (ER) | payer SELFPAY ==
--- NOTE | 2023-11-27 22:21 | ECG_ITS ---
APPROVED REPORT Exam: Resting ECG HR:82 bpm ECG Measurements Heart Rate [address] 168 P 51 QRSd 96 QRS 36 QT 354 T 31 QTc 392 Conclusion SINUS RHYTHM WITH SINUS ARRHYTHMIA NORMAL ECG UNCONFIRMED REPORT Electronically signed by : SHADE NEUMANN, 11/30/2023 02:23:31
[2023-11-27 22:23] VITALS: BP 146/94; PULSE 58; RESP 16; TEMP 36.9; O2SAT 97; BMI 28.1
--- NOTE | 2023-11-27 22:23 | ED_ITS ---
<Statement entered by Gregory Barrera MD - 11/27/23 23:10> I was consulted by the TATE, and we discussed the complexity of the problems being addressed. I approved the treatment and management plan for this patient's care in the emergency department, thus performing a substantive portion of the medical decision making. Gregory Barrera MD Discharge Plan Disposition Patient Disposition: Home, Self-Care Prescriptions Prescriptions: No Action cetirizine 10 MG capsule 10 mg PO DAILY 30 Days Qty: 30 5RF Referrals Follow up/Referrals: Natasha Polo APRN [Primary Care Provider] - See instructions Activity Restrictions/Add. Instructions Additional Instructions/Restrictions: Please follow up with your primary care provider. Clinical Impressions Clinical Impression: Chest pain Discharge ED Provider: Wily Kwan Adult HPI <JULY Roberts - Last Filed: 11/27/23 22:28> General Chief complaint: Chest Pain Stated complaint: Chest Pain Time Seen by Provider: 11/27/23 22:23 History of Present Illness HPI narrative: Patient presents for evaluation of left-sided back pain that radiates to his anterior chest. Patient's had this discomfort since Saturday. There is no provoking event. There is nothing that makes it better or worse. It has been present since Saturday and never completely gone away the worst has been as rated as a 6 out of 10. Patient has no cardiovascular history he is on no home medication For allergies occasionally. Currently he denies shortness of breath fever chills hemoptysis hematochezia melena nausea vomiting diarrhea but states that he just does not feel right . Related Data Previous Rx's Medication Instructions Recorded cetirizine 10 mg capsule 10 mg PO DAILY 30 days #30 caps 10/10/20 Allergies Allergy/AdvReac Type Severity Reaction Status Date / Time Penicillins [PENICILLINS] Allergy Mild Verified 09/01/23 13:12 fluoxetine [From Prozac] Allergy Verified 09/01/23 13:12 PFSH <JULY Roberts - Last Filed: 11/27/23 22:28> [facility] Disclaimer: The information contained in this section may have been updated after the patient was seen, as this information can be updated by other users. Medical History (Updated 11/27/23 @ 23:59 by Wily Kwan MD) Cancer Depression Anxiety Tobacco dependence syndrome Abnormal EKG Chest pain Dyspnea Social History Smoking Status: Current every day smoker tobacco type: cigarettes packs per day: 1 second hand exposure: No alcohol intake: never substance use type: denies use and marijuana current occupational status: other Travel in the last 8 weeks: None number of children: 0 <JULY Roberts - Last Filed: 11/27/23 22:28> ROS Obtained: Yes Systems reviewed as appropriate & no additional complaints except as documented Physical Exam <JULY Roberts - Last Filed: 11/27/23 22:28> General General appearance: alert and in no apparent distress Head Head exam: atraumatic and normal inspection Eye Eye exam: Present normal appearance, PERRL and EOMI ENT ENT exam: Present normal exam, normal oropharynx and mucous membranes moist Neck Neck exam: Present normal inspection and full ROM Chest Chest inspection: Present normal inspection and symmetric chest wall rise; Absent tenderness Respiratory Respiratory exam: Present normal lung sounds bilaterally; Absent respiratory distress, wheezes or accessory muscle use Cardiovascular Cardiovascular exam: Present regular rate, normal rhythm, normal heart sounds, +S1 and +S2 Abdominal Exam Abdominal exam: Present soft and normal bowel sounds; Absent tenderness Extremities Exam Extremities exam: Present normal inspection and full ROM Back Exam Back exam: Present normal inspection and full ROM; Absent tenderness Neurological Exam Neurological exam: Present alert, oriented X3 and CN II-XII intact Psychiatric Psychiatric exam: Present normal affect and normal mood Skin Skin exam: Present warm, dry and normal color Lymphatic Lymphatic Findings: no adenopathy Medical Decision Making <JULY Roberts - Last Filed: 11/27/23 22:28> Medical Records Medical records reviewed: Yes I reviewed the patient's medical records. Cristi Inquiry Pt receiving controlled substance: No Vital Signs: 11/27/23 22:23 11/27/23 22:25 Temperature 98.4 F Temperature Source Oral Pulse Rate 79 Pulse Rate [Right] 58 L Respiratory Rate 16 Blood Pressure [Right Arm] 146/94 H Blood Pressure Mean [Right Arm] 111 02 Sat by Pulse Oximetry 97 Lab Data Lab results reviewed: Yes I reviewed the patient's lab results. Lab Results 11/27/23 22:24: WBC 5.9, RBC 4.75, Hgb 15.2, Hct 45.8, MCV 96.4 H, MCH 32.0 H, MCHC 33.2, RDW 13.4, Plt Count 212, MPV 7.6, Neut % (Auto) 38.0, Lymph % (Auto) 48.9, Frontier % (Auto) 5.4, Eos % (Auto) 6.9, Baso % (Auto) 1.0, Neut # (Auto) 2.2, Lymph # (Auto) 2.9, Frontier # (Auto) 0.3, Eos # (Auto) 0.4, Baso # (Auto) 0.1, PT 10.6, INR 0.98, Sodium 139, Potassium 3.5, Chloride 106, Carbon Dioxide 28, Anion Gap 8.5, BUN 10, Creatinine 1.00, Estimated Creat Clear 113, Estimated GFR 82, Est GFR ( Amer) 99, Glucose 128 H, Calcium 9.0, Magnesium 2.0, Troponin I < 0.01, NT-Pro-B Natriuret Pep < 20.0, Lipase 140 11/27/23 22:24 11/27/23 22:24 Orders (Tests/Meds): ED MEDICATIONS Generic Name Dose Route Start Last Admin Trade Name Freq PRN Reason Stop Dose Admin Sodium Chloride 10 ml 11/27/23 22:49 11/27/23 22:50 Sodium Chloride 0.9% 10ml Syr (Rad Only) IV 12/27/23 22:48 10 ml NEEDED PRN Administration Maintain IV Site Discontinued Medications Generic Name Dose Route Start Last Admin Trade Name Freq PRN Reason Stop Dose Admin Acetaminophen 1,000 mg 11/27/23 22:29 11/27/23 22:50 Acetaminophen 1,000mg/100ml Vial IV 11/27/23 22:30 1,000 mg ONCE ONE Administration Iopamidol 70 ml 11/27/23 22:49 11/27/23 22:50 Iopamidol-370 (76%);100ml Bottle IV 11/27/23 22:50 70 ml ONCE ONE Administration Ketorolac Tromethamine 15 mg 11/27/23 22:29 11/27/23 22:51 Ketorolac 30mg/Ml Vial IV 11/27/23 22:30 15 mg ONCE ONE Administration Sodium Chloride 50 ml 11/27/23 22:49 11/27/23 22:50 0.9 % Sodium Chloride 50 Ml Vial IV 11/27/23 22:50 50 ml ONCE ONE Administration ORDERS Category Date Time Status CT angio chest - dissection Stat Cat Scan 11/27/23 22:29 Completed BMP [Basic Metabolic Panel] Stat Lab 11/27/23 22:24 Completed BNP [NT Pro Brain Natriuretic Pep.] Stat Lab 11/27/23 22:24 Completed CBC w/Auto Diff [Complete Blood Count Auto Diff] Stat Lab 11/27/23 22:24 Completed INR [Prothrombin Time INR] Stat Lab 11/27/23 22:24 Completed Lipase Stat Lab 11/27/23 22:24 Completed Magnesium Stat Lab 11/27/23 22:24 Completed Trop I [Troponin I] Stat Lab 11/27/23 22:24 Completed Troponin I Q3H Lab 11/28/23 01:30 Ordered Troponin I Q3H Lab 11/28/23 04:30 Ordered Medical Decision Narrative: In summary patient is a 43-year-old male who presents to the emergency department for evaluation of back pain that radiates to his left chest. Patient is hemodynamically stable upon arrival, afebrile. Physical exam is unremarkable and nonfocal including nonreproducible discomfort on palpation.. Differential diagnosis includes ACS versus PE versus pneumonia versus muscle spasm etc. Initial workup will be conducted with hematologic labs CT PE protocol twelve- lead EKG. Initial interventions include crystalloid bolus Toradol Tylenol. Initial workup initiated and pending at the time of handoff to the Dr. Kwan at 2300 hrs. <Gregory Barrera MD - Last Filed: 11/27/23 23:12> Vital Signs: 11/27/23 22:23 11/27/23 22:25 Temperature 98.4 F Temperature Source Oral Pulse Rate 79 Pulse Rate [Right] 58 L Respiratory Rate 16 Blood Pressure [Right Arm] 146/94 H Blood Pressure Mean [Right Arm] 111 02 Sat by Pulse Oximetry 97 Lab Data Lab Results 11/27/23 22:24: WBC 5.9, RBC 4.75, Hgb 15.2, Hct 45.8, MCV 96.4 H, MCH 32.0 H, MCHC 33.2, RDW 13.4, Plt Count 212, MPV 7.6, Neut % (Auto) 38.0, Lymph % (Auto) 48.9, Frontier % (Auto) 5.4, Eos % (Auto) 6.9, Baso % (Auto) 1.0, Neut # (Auto) 2.2, Lymph # (Auto) 2.9, Frontier # (Auto) 0.3, Eos # (Auto) 0.4, Baso # (Auto) 0.1, PT 10.6, INR 0.98, Sodium 139, Potassium 3.5, Chloride 106, Carbon Dioxide 28, Anion Gap 8.5, BUN 10, Creatinine 1.00, Estimated Creat Clear 113, Estimated GFR 82, Est GFR ( Amer) 99, Glucose 128 H, Calcium 9.0, Magnesium 2.0, Troponin I < 0.01, NT-Pro-B Natriuret Pep < 20.0, Lipase 140 Orders (Tests/Meds): ED MEDICATIONS Generic Name Dose Route Start Last Admin Trade Name Freq PRN Reason Stop Dose Admin Sodium Chloride 10 ml 11/27/23 22:49 11/27/23 22:50 Sodium Chloride 0.9% 10ml Syr (Rad Only) IV 12/27/23 22:48 10 ml NEEDED PRN Administration Maintain IV Site Discontinued Medications Generic Name Dose Route Start Last Admin Trade Name Freq PRN Reason Stop Dose Admin Acetaminophen 1,000 mg 11/27/23 22:29 11/27/23 22:50 Acetaminophen 1,000mg/100ml Vial IV 11/27/23 22:30 1,000 mg ONCE ONE Administration Iopamidol 70 ml 11/27/23 22:49 11/27/23 22:50 Iopamidol-370 (76%);100ml Bottle IV 11/27/23 22:50 70 ml ONCE ONE Administration Ketorolac Tromethamine 15 mg 11/27/23 22:29 11/27/23 22:51 Ketorolac 30mg/Ml Vial IV 11/27/23 22:30 15 mg ONCE ONE Administration Sodium Chloride 50 ml 11/27/23 22:49 11/27/23 22:50 0.9 % Sodium Chloride 50 Ml Vial IV 11/27/23 22:50 50 ml ONCE ONE Administration ORDERS Category Date Time Status CT angio chest - dissection Stat Cat Scan 11/27/23 22:29 Completed BMP [Basic Metabolic Panel] Stat Lab 11/27/23 22:24 Completed BNP [NT Pro Brain Natriuretic Pep.] Stat Lab 11/27/23 22:24 Completed CBC w/Auto Diff [Complete Blood Count Auto Diff] Stat Lab 11/27/23 22:24 Completed INR [Prothrombin Time INR] Stat Lab 11/27/23 22:24 Completed Lipase Stat Lab 11/27/23 22:24 Completed Magnesium Stat Lab 11/27/23 22:24 Completed Trop I [Troponin I] Stat Lab 11/27/23 22:24 Completed Troponin I Q3H Lab 11/28/23 01:30 Ordered Troponin I Q3H Lab 11/28/23 04:30 Ordered ECG Data Tracing #1: Independently interpreted by me, rate is 82, rhythm is regular, axis is normal, no ST elevation in anatomical contiguous leads, QTc 392. HEART Score History (anamnesis): Moderately suspicious ECG: Normal Age: <45 years Risk factors: 1-2 risk factors Troponin: </= normal limit HEART Score: 2 <Wily Kwan MD - Last Filed: 11/28/23 00:12> Vital Signs: 11/27/23 22:23 11/27/23 22:25 Temperature 98.4 F Temperature Source Oral Pulse Rate 79 Pulse Rate [Right] 58 L Respiratory Rate 16 Blood Pressure [Right Arm] 146/94 H Blood Pressure Mean [Right Arm] 111 02 Sat by Pulse Oximetry 97 Lab Data Lab Results 11/27/23 22:24: WBC 5.9, RBC 4.75, Hgb 15.2, Hct 45.8, MCV 96.4 H, MCH 32.0 H, MCHC 33.2, RDW 13.4, Plt Count 212, MPV 7.6, Neut % (Auto) 38.0, Lymph % (Auto) 48.9, Frontier % (Auto) 5.4, Eos % (Auto) 6.9, Baso % (Auto) 1.0, Neut # (Auto) 2.2, Lymph # (Auto) 2.9, Frontier # (Auto) 0.3, Eos # (Auto) 0.4, Baso # (Auto) 0.1, PT 10.6, INR 0.98, Sodium 139, Potassium 3.5, Chloride 106, Carbon Dioxide 28, Anion Gap 8.5, BUN 10, Creatinine 1.00, Estimated Creat Clear 113, Estimated GFR 82, Est GFR ( Amer) 99, Glucose 128 H, Calcium 9.0, Magnesium 2.0, Troponin I < 0.01, NT-Pro-B Natriuret Pep < 20.0, Lipase 140 Orders (Tests/Meds): ED MEDICATIONS Generic Name Dose Route Start Last Admin Trade Name Giovani PRN Reason Stop Dose Admin Sodium Chloride 10 ml 11/27/23 22:49 11/27/23 22:50 Sodium Chloride 0.9% 10ml Syr (Rad Only) IV 12/27/23 22:48 10 ml NEEDED PRN Administration Maintain IV Site Discontinued Medications Generic Name Dose Route Start Last Admin Trade Name Giovani PRN Reason Stop Dose Admin Acetaminophen 1,000 mg 11/27/23 22:29 11/27/23 22:50 Acetaminophen 1,000mg/100ml Vial IV 11/27/23 22:30 1,000 mg ONCE ONE Administration Iopamidol 70 ml 11/27/23 22:49 11/27/23 22:50 Iopamidol-370 (76%);100ml Bottle IV 11/27/23 22:50 70 ml ONCE ONE Administration Ketorolac Tromethamine 15 mg 11/27/23 22:29 11/27/23 22:51 Ketorolac 30mg/Ml Vial IV 11/27/23 22:30 15 mg ONCE ONE Administration Sodium Chloride 50 ml 11/27/23 22:49 11/27/23 22:50 0.9 % Sodium Chloride 50 Ml Vial IV 11/27/23 22:50 50 ml ONCE ONE Administration ORDERS Category Date Time Status CT angio chest - dissection Stat Cat Scan 11/27/23 22:29 Completed BMP [Basic Metabolic Panel] Stat Lab 11/27/23 22:24 Completed BNP [NT Pro Brain Natriuretic Pep.] Stat Lab 11/27/23 22:24 Completed CBC w/Auto Diff [Complete Blood Count Auto Diff] Stat Lab 11/27/23 22:24 Completed INR [Prothrombin Time INR] Stat Lab 11/27/23 22:24 Completed Lipase Stat Lab 11/27/23 22:24 Completed Magnesium Stat Lab 11/27/23 22:24 Completed Trop I [Troponin I] Stat Lab 11/27/23 22:24 Completed Troponin I Q3H Lab 11/28/23 01:30 Ordered Troponin I Q3H Lab 11/28/23 04:30 Ordered ECG Data Tracing #1: I reviewed this ECG and interpreted as documented below: Rate 82, normal sinus rhythm, no significant ST or T wave changes, no evidence of arrhythmia ECG initial impression date: 11/28/23 ECG initial impression time: 00:10 HEART Score HEART Score: 2 Medical Decision Narrative: In summary patient is a 43-year-old male who presents to the emergency department for evaluation of back pain that radiates to his left chest. Patient is hemodynamically stable upon arrival, afebrile. Physical exam is unremarkable and nonfocal including nonreproducible discomfort on palpation.. Differential diagnosis includes ACS versus PE versus pneumonia versus muscle spasm etc. Initial workup will be conducted with hematologic labs CT PE protocol twelve- lead EKG. Initial interventions include crystalloid bolus Toradol Tylenol. Initial workup initiated and pending at the time of handoff to the Dr. Kwan at 2300 hrs. Aniya CONN: I assumed care of the patient at the time of handoff from the prior provider. Laboratory results independently interpreted by me and show no significant leukocytosis, normal renal function, no electrolyte derangement, undetectable initial troponin. CT imaging independently interpreted by me and shows no evidence of aortic pathology, pulmonary embolism, lung mass, rib fracture etc. Repeat troponin was considered, but deemed unnecessary given patient has had persistent/unchanged pain for greater than 3 days without significant change prior to arrival. Interact discussed with patient regarding his presentation. At this time, there is not a definitive underlying etiology of his symptoms, though I believe we have satisfactorily ruled out emergent pathology. Patient was discharged in stable condition with return precautions. Critical Care <JULY Roberts - Last Filed: 11/27/23 22:28> Critical Care Time Critical Care Time: No
[2023-11-27 22:25] VITALS: PULSE 79
--- NOTE | 2023-11-27 22:29 | CT_ITS ---
PROCEDURE INFORMATION: Exam: CTA Chest With Contrast Exam date and time: 11/27/2023 10:49 PM Age: 43 years old Clinical indication: Chest wall pain; Additional info: Acute chest pain. Lt side cp that radiates to back TECHNIQUE: Imaging protocol: Computed tomographic angiography of the chest with contrast. Exam focused on the arteries. 3D rendering (Not supervised by radiologist): MIP and/or 3D reconstructed images were created by the technologist. Radiation optimization: All CT scans at this facility use at least one of these dose optimization techniques: automated exposure control; mA and/or kV adjustment per patient size (includes targeted exams where dose is matched to clinical indication); or iterative reconstruction. Contrast material: ISOUVE 370; Contrast volume: 70 ml; Contrast route: INTRAVENOUS (IV); COMPARISON: CT CHEST WO CON 05/31/2020 1:49 PM FINDINGS: Pulmonary arteries: Normal. No pulmonary emboli. Aorta: Unremarkable. No aortic aneurysm. No aortic dissection. Lungs: Minimal subsegmental atelectasis and/or scarring. No consolidation. Stable small left apical calcified granuloma. No masses. Minimal bronchial wall thickening. Pleural spaces: Unremarkable. No pneumothorax. No pleural effusion. Heart: Unremarkable. No cardiomegaly. No pericardial effusion. Lymph nodes: Unremarkable. No enlarged lymph nodes. Adrenal glands: Stable right adrenal nodule. Bones/joints: Degenerative changes. No acute fracture. Soft tissues: Unremarkable. IMPRESSION: 1. No pulmonary artery embolism. 2. Minimal bronchial wall thickening, correlate for bronchitis.
[2023-11-27 22:37] LABS: Basophils # 0.1 K/mm3 (0-0.2); Eosinophils # 0.4 K/mm3 (0.0-0.4); Eosinophils % 6.9 % (0.1-12.0); Hematocrit 45.8 % (42.0-52.0); Hemoglobin 15.2 g/dL (14.1-18.0); Lymphocytes # 2.9 K/mm3 (0.7-4.5); Lymphocytes % 48.9 % (10-50); Mean Corpuscular HGB Conc 33.2 g/dL (31.8-35.4); Mean Corpuscular Volume 96.4 fl (80-94); Mean Platelet Volume 7.6 fl (7.4-10.4); Monocytes # 0.3 K/mm3 (0.1-1.0); Monocytes % 5.4 % (1.7-9.3); Neutrophils # 2.2 K/mm3 (1.8-7.8); Platelet Count 212 K/mm3 (142-424); Red Blood Count 4.75 M/mm3 (4.60-6.20); Red Cell Distribution Width 13.4 % (11.5-17.5); White Blood Count 5.9 K/mm3 (4.8-10.8)
[2023-11-27 22:41] LABS: Sodium 139 mmol/L (136-145)
[2023-11-27 22:42] LABS: Chloride 106 mmol/L (98-107); Potassium 3.5 mmoL/L (3.5-5.1)
[2023-11-27 22:43] LABS: INR 0.98 (0.9-1.1); Prothrombin Time 10.6 seconds (10.1-12.5)
[2023-11-27 22:44] LABS: Blood Urea Nitrogen 10 mg/dl (9-20); Creatinine Clearance Estimated 113 mL/min (50-200); Estimated Glomerular Filt Rate 82 ml/min (>60); GFR (African American) 99 ML/MIN (>60)
[2023-11-27 22:45] LABS: Anion Gap 8.5 mEq/L (5-15); Carbon Dioxide 28 mmol/L (22.0-30.0); Glucose 128 mg/dl (74-100); Lipase 140 U/L (23-300)
[2023-11-27] MEDS: 0.9 % SODIUM CHLORIDE 50 ML VIAL IV (22:50)
[2023-11-27] MEDS: SODIUM CHLORIDE 0.9% 10ML SYR (RAD ONLY) 10 ML IV (22:50)
[2023-11-27] MEDS: IOPAMIDOL-370 (76%);100ML BOTTLE 70 ML IV (22:50)
[2023-11-27] MEDS: ACETAMINOPHEN 1,000MG/100ML VIAL 1000 MG IV (22:50)
[2023-11-27] MEDS: KETOROLAC 30MG/ML VIAL 15 MG IV (22:51)
[2023-11-27 22:54] LABS: NT Pro Brain Natriuretic Pep. < 20.0 pg/mL (0-125)
[2023-11-27 22:58] LABS: Troponin I < 0.01 ng/ml (0.00-0.034)
[2023-11-28 00:10] VITALS: BP 116/76; PULSE 70; RESP 18; TEMP 36.7; O2SAT 94
== END 2023-11-28 00:11 | disposition home or self-care (01) ==
PROVIDERS: Physician Assistant; Emergency Provider Emergency Medicine; PCP Nurse Practitioner Family
DX: R07.9 Chest pain, unspecified (principal); I49.9 Cardiac arrhythmia, unspecified; F17.210 Nicotine dependence, cigarettes, uncomplicated
CPT/HCPCS: 71275; 80048; 83690; 83735; 83880; 84484; 85025; 85610; 93005; 96374; 96375; 99285; J0131; Q9967